=== PATIENT | female | born 1995 ===

== ENCOUNTER 2019-06-07 14:59 | Inpatient (IN) | payer BC ==
[2019-06-07] MEDS ORDERED: Sodium Chloride 0.9% 2.5 ML Syringe FLUSH PRN (15:19)
[2019-06-07] MEDS ORDERED: Misoprostol 200 MCG Tab PO PRN (15:19)
[2019-06-07] MEDS ORDERED: Methylergonovine 0.2 MG/1 ML Amp IM PRN (15:19)
[2019-06-07] MEDS ORDERED: Butorphanol 1 MG/ML SDV IVPUSH PRN (15:19)
[2019-06-07] MEDS ORDERED: Tranexamic Acid 1,000 MG in Sodium Chloride 0.9% 100 ML IV PRN (15:19)
[2019-06-07] MEDS ORDERED: Carboprost Tromethamine 250 MCG/1 ML Amp IM PRN (15:19)
[2019-06-07] MEDS ORDERED: Nalbuphine 10 MG/1 ML Vial IVPUSH PRN (15:19)
[2019-06-07] MEDS ORDERED: Sodium Chloride 0.9% 10 ML Syringe FLUSH PRN (15:19)
[2019-06-07] MEDS ORDERED: Water For Irrigation,Sterile 1,000 ML Container IRR PRN (15:19)
[2019-06-07] MEDS ORDERED: Sodium Chloride 0.9% 10 ML SDV IV PRN (15:19)
[2019-06-07] MEDS ORDERED: Lidocaine 1% 50 ML MDV INJECT PRN (15:19)
[2019-06-07] MEDS ORDERED: Oxytocin/0.9 % Sodium Chloride 30 UNIT/500 ML BAG IV SCH (15:30)
[2019-06-07] MEDS ORDERED: Lactated Ringers 1,000 ML IV SCH (15:30)
[2019-06-07] MEDS ORDERED: Ampicillin 2 GM in Sodium Chloride 0.9% 100 ML IV ONE (15:41)
[2019-06-07] MEDS ORDERED: Oxytocin/0.9 % Sodium Chloride 30 UNIT/500 ML BAG ONE (16:20)
[2019-06-07] MEDS ORDERED: Lidocaine 1% 50 ML MDV ONE (16:44)
--- NOTE | 2019-06-07 17:06 | PCM.LDHP ---
L&D History of Present Illness - General Date of Service: 06/07/19 Admit Problem/Dx: Patient Status Order with Admit Dx/Problem 06/07/19 15:22 Patient Status [ADT] Routine Admission Diagnosis/Problem Admission Diagnosis/Problem 06/07/19 17:01 24yo EDC 06/14/2019 O neg, RI, GBS pos. Comes in active labor and delivered an hour later healthy baby girl. Source of Information: Patient History Limitations: Reports: No Limitations - History of Present Illness Improves with: Reports: None Worsens with: Reports: None Associated Symptoms: Reports: N - Related Data Allergies/Adverse Reactions: Allergies Allergy/AdvReac Type Severity Reaction Status Date / Time No Known Allergies Allergy Verified 06/07/19 15:17 Home Medications: Home Meds Famotidine [Pepcid] 10 mg PO BID PRN 06/06/19 [History] Vits #93/Iron Fum/FA [ Formula Tablet] 1 each PO DAILY [History] H&P Review of Systems - Review of Systems: Review Of Systems: See Below General: Reports: No Symptoms HEENT: Reports: No Symptoms Pulmonary: Reports: No Symptoms Cardiovascular: Reports: No Symptoms Gastrointestinal: Reports: No Symptoms Genitourinary: Reports: No Symptoms Musculoskeletal: Reports: No Symptoms Skin: Reports: No Symptoms Psychiatric: Reports: No Symptoms Neurological: Reports: No Symptoms Hematologic/Lymphatic: Reports: No Symptoms Immunologic: Reports: No Symptoms L&D Exam - Exam Exam: See Below - OB Specific Contraction Intensity: Strong Movement: Active Heart Tones: Present Heart Rate (FHR) Variability: Moderate (6-25 bmp) Presentation: Vertex - Contreras Score Contreras Score Cervix Position: Anterior Contreras Score Effacement: >80% Contreras Score Dilation: > 5 cm Contreras Score Infant's Station: +1, +2 - Exam General: Alert, Oriented, Cooperative Lungs: Normal Respiratory Effort Rectal Exam: Deferred Genitourinary: Normal external exam, Normal bimanual exam, Cervical dilitation Back Exam: Full Range of Motion Extremities: Normal Range of Motion, Non-Tender, No Pedal Edema Skin: Warm, Dry, Intact Neurological: Cranial Nerves Intact, Strength Equal Bilateral, Normal Speech, Normal Tone, Sensation Intact Psychiatric: Alert, Normal Affect, Normal Mood - Patient Data Lab Results Last 24 hrs: Laboratory Results - last 24 hr 06/07/19 06/07/19 Range/Units 15:40 16:20 WBC 9.02 (4.0-11.0) K/uL RBC 4.01 L (4.30-5.90) M/uL Hgb 12.1 (12.0-16.0) g/dL Hct 35.3 L (36.0-46.0) % MCV 88.0 (80.0-98.0) fL MCH 30.2 (27.0-32.0) pg MCHC 34.3 (31.0-37.0) g/dL RDW Std Deviation 42.8 (28.0-62.0) fl RDW Coeff of Margarita 13 (11.0-15.0) % Plt Count 202 (150-400) K/uL MPV 11.00 (7.40-12.00) fL Nucleated RBC % 0.0 /100WBC Nucleated RBCs # 0 K/uL Membrane Rupture POSITIVE Result Diagrams: 06/07/19 16:20 - Problem List (1) Supervision of normal IUP (intrauterine ) in multigravida SNOMED Code(s): 851000941, 132495385, 050111670 ICD Code: Z34.80 - ENCOUNTER FOR SUPRVSN OF NORMAL , UNSP TRIMESTER Status: Acute Priority: High Current Visit: Yes Qualifiers: Trimester: third trimester Qualified Code(s): Z34.83 - Encounter for supervision of other normal , third trimester (2) (normal spontaneous vaginal delivery) SNOMED Code(s): 55022314, 854101504 ICD Code: O80 - ENCOUNTER FOR FULL-TERM UNCOMPLICATED DELIVERY Status: Acute Priority: High Current Visit: Yes Problem List Initiated/Reviewed/Updated: Yes Orders Last 24hrs: Active Orders 24 hr Category Date Time Status Patient Status [ADT] Routine ADT 06/07/19 15:22 Active Heart Tones [RC] CONTINUOUS Care 06/07/19 15:22 Active Non Stress Test [RC] PER UNIT ROUTINE Care 06/07/19 15:22 Active May Shower [RC] ASDIRECTED Care 06/07/19 15:22 Active Notify Provider [RC] PRN Care 06/07/19 15:22 Active Up ad Tanja [RC] ASDIRECTED Care 06/07/19 15:22 Active Vaginal Exam [RC] PRN Care 06/07/19 15:22 Active Vital Signs [RC] PER UNIT ROUTINE Care 06/07/19 15:22 Active RPR (SYPHILIS SERO) W/ RFLX [REF] Routine Lab 06/07/19 16:20 Received TYPE AND SCREEN [BBK] Routine Lab 06/07/19 Ordered Ampicillin 1 gm Med 06/07/19 20:00 Active Sodium Chloride 0.9% [Normal Saline] 50 ml IV Q4H Butorphanol [Stadol] Med 06/07/19 15:19 Active 1 mg IVPUSH Q1H PRN Carboprost Tromethamine [Hemabate DS] Med 06/07/19 15:19 Active 250 mcg IM ASDIRECTED PRN Lactated Ringers [Ringers, Lactated] 1,000 ml Med 06/07/19 15:30 Active IV ASDIRECTED Lidocaine 1% [Xylocaine 1%] Med 06/07/19 15:19 Active 50 ml INJECT ONETIME PRN Methylergonovine [Methergine] Med 06/07/19 15:19 Active 0.2 mg IM ASDIRECTED PRN Nalbuphine [Nubain] Med 06/07/19 15:19 Active 10 mg IVPUSH Q1H PRN Oxytocin/0.9 % Sodium Chloride [Oxytocin 30 Unit/500 ML Med 06/07/19 15:30 Active -NS] 30 unit in 500 ml IV TITRATE Sodium Chloride 0.9% [Normal Saline] Med 06/07/19 15:19 Active 10 ml IV ASDIRECTED PRN Sodium Chloride 0.9% [Saline Flush] Med 06/07/19 15:19 Active 10 ml FLUSH ASDIRECTED PRN Sodium Chloride 0.9% [Saline Flush] Med 06/07/19 15:19 Active 2.5 ml FLUSH ASDIRECTED PRN Tranexamic Acid [Cyklokapron] 1,000 mg Med 06/07/19 15:19 Active Sodium Chloride 0.9% [Normal Saline] 100 ml IV ONETIME Water For Irrigation,Sterile [Sterile Water for Med 06/07/19 15:19 Active Irrigation] 1,000 ml IRR ASDIRECTED PRN miSOPROStoL [Cytotec] Med 06/07/19 15:19 Active 200 mcg PO ONETIME PRN Scalp Electrode [WOMSER] Per Unit Routine Oth 06/07/19 15:22 Ordered Peripheral IV Insertion Adult [OM.PC] Routine Oth 06/07/19 15:22 Ordered Resuscitation Status Routine Resus Stat 06/07/19 15:19 Ordered Medication Orders Butorphanol Tartrate (Stadol) 1 mg IVPUSH Q1H PRN PRN Reason: Pain Carboprost Tromethamine (Hemabate Ds) 250 mcg IM ASDIRECTED PRN PRN Reason: Post Hemorrhage Lactated Ringer's (Ringers, Lactated) 1,000 mls @ 150 mls/hr IV ASDIRECTED [facility] Last Admin: 06/07/19 15:43 Dose: 150 mls/hr Oxytocin/Sodium Chloride (Oxytocin 30 Unit/500 Ml-Ns) 30 unit in 500 mls @ 500 mls/hr IV TITRATE [facility] Last Admin: 06/07/19 16:26 Dose: 500 mls/hr Tranexamic Acid 1,000 mg/ (Sodium Chloride) 110 mls @ 660 mls/hr IV ONETIME PRN PRN Reason: Bleeding Ampicillin Sodium 1 gm/ Sodium (Chloride) 50 mls @ 100 mls/hr IV Q4H [facility] Lidocaine HCl (Xylocaine 1%) 50 ml INJECT ONETIME PRN PRN Reason: Laceration repair Methylergonovine Maleate (Methergine) 0.2 mg IM ASDIRECTED PRN PRN Reason: Post Hemorrhage Misoprostol (Cytotec) 200 mcg PO ONETIME PRN PRN Reason: Post Hemorrhage Nalbuphine HCl (Nubain) 10 mg IVPUSH Q1H PRN PRN Reason: Pain (severe 7-10) Sodium Chloride (Saline Flush) 10 ml FLUSH ASDIRECTED PRN PRN Reason: Keep Vein Open Sodium Chloride (Saline Flush) 2.5 ml FLUSH ASDIRECTED PRN PRN Reason: Keep Vein Open Sodium Chloride (Normal Saline) 10 ml IV ASDIRECTED PRN PRN Reason: IV Use Sterile Water (Sterile Water For Irrigation) 1,000 ml IRR ASDIRECTED PRN PRN Reason: delivery Assessment/Plan Comment:: Admit A: 24yo EDC 06/14/2019 O neg, RI, GBS pos. Comes in active labor and delivered an hour later healthy baby girl. P: Admit, Amp 2gm given, amnisure pos. Labs, Pt delivered with nurse assist. Delivery A: of viable female, APGARS 9/9, Wt pending. Intact perineum, EBL 150cc, Stable P: Routine pp plan of care
--- NOTE | 2019-06-07 17:08 | PCM.DEL ---
L & D Note - General Info Date of Service: 06/07/19 Mother's Due Date: 06/14/19 - Delivery Note Labor: Spontaneous Delivery Outcome: Livebirth Infant Delivery Method: Spontaneous Vaginal Delivery-Single Delivery Mode: Spontaneous Presentation: Vertex Nuchal Cord: None Anesthesia Type: None Amniotic Fluid Description: Clear Episiotomy Type: None Laceration: None Placenta: Intact, Spontaneous Cord: 3 Vessels Estimated Blood Loss: 150 Resuscitation Needed: No Score 1 min: 9 Score 5 min: 9 Second Stage Interventions: Reports: Other (see below) (Nurse assisted delivery. Provider called 5 min prior when pt was 8cm.) - General Info Date of Service: 06/07/19 Admission Dx/Problem (Free Text): Patient Status Order with Admit Dx/Problem 06/07/19 15:22 Patient Status [ADT] Routine Admission Diagnosis/Problem Admission Diagnosis/Problem 06/07/19 17:01 24yo EDC 06/14/2019 O neg, RI, GBS pos. Comes in active labor and delivered an hour later healthy baby girl. Functional Status: Reports: Pain Controlled - Review of Systems General: Reports: No Symptoms HEENT: Reports: No Symptoms Pulmonary: Reports: No Symptoms Cardiovascular: Reports: No Symptoms Gastrointestinal: Reports: No Symptoms Genitourinary: Reports: No Symptoms Musculoskeletal: Reports: No Symptoms Skin: Reports: No Symptoms Neurological: Reports: No Symptoms Psychiatric: Reports: No Symptoms - Patient Data Lab Results Last 24 Hours: Laboratory Results - last 24 hr 06/07/19 06/07/19 Range/Units 15:40 16:20 WBC 9.02 (4.0-11.0) K/uL RBC 4.01 L (4.30-5.90) M/uL Hgb 12.1 (12.0-16.0) g/dL Hct 35.3 L (36.0-46.0) % MCV 88.0 (80.0-98.0) fL MCH 30.2 (27.0-32.0) pg MCHC 34.3 (31.0-37.0) g/dL RDW Std Deviation 42.8 (28.0-62.0) fl RDW Coeff of Margarita 13 (11.0-15.0) % Plt Count 202 (150-400) K/uL MPV 11.00 (7.40-12.00) fL Nucleated RBC % 0.0 /100WBC Nucleated RBCs # 0 K/uL Membrane Rupture POSITIVE Med Orders - Current: Current Medications Butorphanol Tartrate (Stadol) 1 mg IVPUSH Q1H PRN PRN Reason: Pain Carboprost Tromethamine (Hemabate Ds) 250 mcg IM ASDIRECTED PRN PRN Reason: Post Hemorrhage Lactated Ringer's (Ringers, Lactated) 1,000 mls @ 150 mls/hr IV ASDIRECTED [facility] Last Admin: 06/07/19 15:43 Dose: 150 mls/hr Oxytocin/Sodium Chloride (Oxytocin 30 Unit/500 Ml-Ns) 30 unit in 500 mls @ 500 mls/hr IV TITRATE [facility] Last Admin: 06/07/19 16:26 Dose: 500 mls/hr Tranexamic Acid 1,000 mg/ (Sodium Chloride) 110 mls @ 660 mls/hr IV ONETIME PRN PRN Reason: Bleeding Ampicillin Sodium 1 gm/ Sodium (Chloride) 50 mls @ 100 mls/hr IV Q4H [facility] Lidocaine HCl (Xylocaine 1%) 50 ml INJECT ONETIME PRN PRN Reason: Laceration repair Methylergonovine Maleate (Methergine) 0.2 mg IM ASDIRECTED PRN PRN Reason: Post Hemorrhage Misoprostol (Cytotec) 200 mcg PO ONETIME PRN PRN Reason: Post Hemorrhage Nalbuphine HCl (Nubain) 10 mg IVPUSH Q1H PRN PRN Reason: Pain (severe 7-10) Sodium Chloride (Saline Flush) 10 ml FLUSH ASDIRECTED PRN PRN Reason: Keep Vein Open Sodium Chloride (Saline Flush) 2.5 ml FLUSH ASDIRECTED PRN PRN Reason: Keep Vein Open Sodium Chloride (Normal Saline) 10 ml IV ASDIRECTED PRN PRN Reason: IV Use Sterile Water (Sterile Water For Irrigation) 1,000 ml IRR ASDIRECTED PRN PRN Reason: delivery Discontinued Medications Ampicillin Sodium 2 gm/ Sodium (Chloride) 100 mls @ 200 mls/hr IV ONETIME ONE Stop: 06/07/19 16:10 Last Admin: 06/07/19 15:56 Dose: 200 mls/hr Oxytocin/Sodium Chloride (Oxytocin 30 Unit/500 Ml-Ns) Confirm Administered Dose 30 unit in 500 mls @ as directed .ROUTE .STK-MED ONE Stop: 06/07/19 16:21 Lidocaine HCl (Xylocaine 1%) Confirm Administered Dose 50 ml .ROUTE .STK-MED ONE Stop: 06/07/19 16:45 - Exam General: Alert, Oriented, Cooperative, No Acute Distress Lungs: Normal Respiratory Effort GI/Abdominal Exam: Soft, Non-Tender (Female) Exam: Deferred, Vaginal Bleeding. No: Vaginal Lesions, Vaginal Tears Back Exam: Full Range of Motion Extremities: Normal Range of Motion, Non-Tender, No Pedal Edema Skin: Warm, Dry, Intact Neurological: No New Focal Deficit, Normal Speech, Normal Tone, Strength Equal Bilateral, Sensation Intact Psy/Mental Status: Alert, Normal Affect, Normal Mood - Problem List & Annotations (1) Supervision of normal IUP (intrauterine ) in multigravida SNOMED Code(s): 385514619, 494368518, 263720557 Code(s): Z34.80 - ENCOUNTER FOR SUPRVSN OF NORMAL , UNSP TRIMESTER Status: Acute Priority: High Current Visit: Yes Qualifiers: Trimester: third trimester Qualified Code(s): Z34.83 - Encounter for supervision of other normal , third trimester (2) (normal spontaneous vaginal delivery) SNOMED Code(s): 50861395, 329277355 Code(s): O80 - ENCOUNTER FOR FULL-TERM UNCOMPLICATED DELIVERY Status: Acute Priority: High Current Visit: Yes - Problem List Review Problem List Initiated/Reviewed/Updated: Yes - My Orders Last 24 Hours: My Active Orders 06/07/19 TYPE AND SCREEN [BBK] Routine 06/07/19 15:19 Butorphanol [Stadol] 1 mg IVPUSH Q1H PRN Carboprost Tromethamine [Hemabate DS] 250 mcg IM ASDIRECTED PRN Lidocaine 1% [Xylocaine 1%] 50 ml INJECT ONETIME PRN Methylergonovine [Methergine] 0.2 mg IM ASDIRECTED PRN Nalbuphine [Nubain] 10 mg IVPUSH Q1H PRN Sodium Chloride 0.9% [Normal Saline] 10 ml IV ASDIRECTED PRN Sodium Chloride 0.9% [Saline Flush] 10 ml FLUSH ASDIRECTED PRN Sodium Chloride 0.9% [Saline Flush] 2.5 ml FLUSH ASDIRECTED PRN Tranexamic Acid [Cyklokapron] 1,000 mg Sodium Chloride 0.9% [Normal Saline] 100 ml IV ONETIME Water For Irrigation,Sterile [Sterile Water for Irrigation] 1,000 ml IRR ASDIRECTED PRN miSOPROStoL [Cytotec] 200 mcg PO ONETIME PRN Resuscitation Status Routine 06/07/19 15:22 Patient Status [ADT] Routine Heart Tones [RC] CONTINUOUS Non Stress Test [RC] PER UNIT ROUTINE May Shower [RC] ASDIRECTED Notify Provider [RC] PRN Up ad Tanja [RC] ASDIRECTED Vaginal Exam [RC] PRN Vital Signs [RC] PER UNIT ROUTINE Scalp Electrode [WOMSER] Per Unit Routine Peripheral IV Insertion Adult [OM.PC] Routine 06/07/19 15:30 Lactated Ringers [Ringers, Lactated] 1,000 ml IV ASDIRECTED Oxytocin/0.9 % Sodium Chloride [Oxytocin 30 Unit/500 ML-NS] 30 unit in 500 ml IV TITRATE 06/07/19 16:20 RPR (SYPHILIS SERO) W/ RFLX [REF] Routine 06/07/19 20:00 Ampicillin 1 gm Sodium Chloride 0.9% [Normal Saline] 50 ml IV Q4H - Plan Plan:: Admit A: 24yo EDC 06/14/2019 O neg, RI, GBS pos. Comes in active labor and delivered an hour later healthy baby girl. P: Admit, Amp 2gm given, amnisure pos. Labs, Pt delivered with nurse assist. Delivery A: of viable female, APGARS 9/9, Wt pending. Intact perineum, EBL 150cc, Stable P: Routine pp plan of care
[2019-06-07] MEDS ORDERED: Benzocaine/Menthol 20%-0.5% Spray 78 GM Cannister TOP PRN (17:09)
[2019-06-07] MEDS ORDERED: Bisacodyl 10 MG Supp RECTAL PRN (17:09)
[2019-06-07] MEDS ORDERED: Docusate Sodium 100 MG Cap PO PRN (17:09)
[2019-06-07] MEDS ORDERED: Ibuprofen 800 MG Tab PO PRN (17:09)
[2019-06-07] MEDS ORDERED: oxyCODONE 5 MG Tab PO PRN (17:09)
[2019-06-07] MEDS ORDERED: Witch Hazel Medicated Pads 40/Jar TOP PRN (17:09)
[2019-06-07] MEDS ORDERED: Ibuprofen 400 MG Tab PO PRN (17:09)
[2019-06-07] MEDS ORDERED: Acetaminophen 500 MG Tab PO PRN ×2 (17:09)
[2019-06-07] MEDS ORDERED: Lanolin 100% Cream 7 GM Tube TOP PRN (17:09)
[2019-06-07] MEDS ORDERED: Ampicillin 1 GM in Sodium Chloride 0.9% 50 ML IV SCH (20:00)
--- NOTE | 2019-06-08 08:25 | PCM.DCSUM1 ---
Discharge Summary - Hospital Course Free Text/Narrative:: Discharge home with infant. Follow up 6 weeks for . Diagnosis: Stroke: No - Discharge Data Discharge Date: 06/08/19 Discharge Disposition: Home, Self-Care 01 Condition: Good - Referral to Home Health Primary Care Physician: Cindy Hernandez CNM - Discharge Diagnosis/Problem(s) (1) Supervision of normal IUP (intrauterine ) in multigravida SNOMED Code(s): 373190164, 020261999, 810088559 ICD Code: Z34.80 - ENCOUNTER FOR SUPRVSN OF NORMAL , UNSP TRIMESTER Status: Acute Priority: High Current Visit: Yes Qualifiers: Trimester: third trimester Qualified Code(s): Z34.83 - Encounter for supervision of other normal , third trimester (2) (normal spontaneous vaginal delivery) SNOMED Code(s): 22207192, 703091319 ICD Code: O80 - ENCOUNTER FOR FULL-TERM UNCOMPLICATED DELIVERY Status: Acute Priority: High Current Visit: Yes - Patient Instructions Diet: Usual Diet as Tolerated Activity: As Tolerated, No Strenuous Activities, Rest and Relax Today Driving: May Drive Today Showering/Bathing: May Shower Notify Provider of: Fever, Increased Pain, Swelling and Redness, Nausea and/or Vomiting Other/Special Instructions: Discharge home with . Follow up 6 weeks for . - Discharge Plan *PRESCRIPTION DRUG MONITORING PROGRAM REVIEWED*: Not Applicable *COPY OF PRESCRIPTION DRUG MONITORING REPORT IN PATIENT MAHSA: Not Applicable Home Medications: Home Meds Famotidine [Pepcid] 10 mg PO BID PRN 06/06/19 [History] Vits #93/Iron Fum/FA [ Formula Tablet] 1 each PO DAILY [History] Oxygen Therapy Mode: Room Air Referrals: [facility] [Outside] Deborah Dacosta CNM, PRODUCTION TEAM MANAGER [Mid-] - 07/19/19 3:00 pm - Discharge Summary/Plan Comment DC Time >30 min.: Yes - General Info Date of Service: 06/08/19 Admission Dx/Problem (Free Text: Patient Status Order with Admit Dx/Problem 06/07/19 15:22 Patient Status [ADT] Routine Admission Diagnosis/Problem Admission Diagnosis/Problem 06/07/19 17:01 24yo EDC 06/14/2019 O neg, RI, GBS pos. Comes in active labor and delivered an hour later healthy baby girl. Functional Status: Reports: Pain Controlled, Tolerating Diet, Ambulating, Urinating - Review of Systems General: Reports: No Symptoms HEENT: Reports: No Symptoms Pulmonary: Reports: No Symptoms Cardiovascular: Reports: No Symptoms Gastrointestinal: Reports: No Symptoms Genitourinary: Reports: No Symptoms Musculoskeletal: Reports: No Symptoms Skin: Reports: No Symptoms Neurological: Reports: No Symptoms Psychiatric: Reports: No Symptoms - Patient Data Vitals - Most Recent: Last Vital Signs Temp 36.7 C 06/08/19 03:58 Pulse 60 06/08/19 03:58 Resp 16 06/08/19 03:58 BP 122/65 06/08/19 03:58 Pulse Ox 98 06/08/19 03:58 Weight - Most Recent: 75.75 kg Lab Results - Last 24 hrs: Laboratory Results - last 24 hr 06/07/19 06/07/19 06/07/19 Range/Units 15:40 16:20 17:48 WBC 9.02 (4.0-11.0) K/uL RBC 4.01 L (4.30-5.90) M/uL Hgb 12.1 (12.0-16.0) g/dL Hct 35.3 L (36.0-46.0) % MCV 88.0 (80.0-98.0) fL MCH 30.2 (27.0-32.0) pg MCHC 34.3 (31.0-37.0) g/dL RDW Std Deviation 42.8 (28.0-62.0) fl RDW Coeff of Margarita 13 (11.0-15.0) % Plt Count 202 (150-400) K/uL MPV 11.00 (7.40-12.00) fL Nucleated RBC % 0.0 /100WBC Nucleated RBCs # 0 K/uL Membrane Rupture POSITIVE Blood Type O NEGATIVE Antibody Screen NEGATIVE Screen NEGATIVE (NEGATIVE) RhIG Candidate? YES Rhogam Indicated YES, BABY RH POS H Med Orders - Current: Current Medications Acetaminophen (Tylenol Extra Strength) 500 mg PO Q4H PRN PRN Reason: Pain Acetaminophen (Tylenol Extra Strength) 1,000 mg PO Q4H PRN PRN Reason: Pain Benzocaine/Menthol (Dermoplast Pain Relief 20%-0.5% [place]) 78 gm TOP ASDIRECTED PRN PRN Reason: Perineal Comfort Measure Bisacodyl (Dulcolax) 10 mg RECTAL ONETIME PRN PRN Reason: Constipation Docusate Sodium (Colace) 100 mg PO BID PRN PRN Reason: Constipation Emollient Ointment (Lansinoh Hpa) 0 gm TOP ASDIRECTED PRN PRN Reason: Sore Nipples Ibuprofen (Motrin) 400 mg PO Q4H PRN PRN Reason: Pain Ibuprofen (Motrin) 800 mg PO Q6H PRN PRN Reason: Pain Last Admin: 06/08/19 00:12 Dose: 800 mg Oxycodone HCl (Oxycodone) 5 mg PO Q2H PRN PRN Reason: Pain Witch Liz (Tucks) 1 pad TOP ASDIRECTED PRN PRN Reason: comfort care Discontinued Medications Butorphanol Tartrate (Stadol) 1 mg IVPUSH Q1H PRN PRN Reason: Pain Carboprost Tromethamine (Hemabate Ds) 250 mcg IM ASDIRECTED PRN PRN Reason: Post Hemorrhage Lactated Ringer's (Ringers, Lactated) 1,000 mls @ 150 mls/hr IV ASDIRECTED [facility] Last Admin: 06/07/19 15:43 Dose: 150 mls/hr Oxytocin/Sodium Chloride (Oxytocin 30 Unit/500 Ml-Ns) 30 unit in 500 mls @ 500 mls/hr IV TITRATE [facility] Last Admin: 06/07/19 16:26 Dose: 500 mls/hr Tranexamic Acid 1,000 mg/ (Sodium Chloride) 110 mls @ 660 mls/hr IV ONETIME PRN PRN Reason: Bleeding Ampicillin Sodium 1 gm/ Sodium (Chloride) 50 mls @ 100 mls/hr IV Q4H [facility] Ampicillin Sodium 2 gm/ Sodium (Chloride) 100 mls @ 200 mls/hr IV ONETIME ONE Stop: 06/07/19 16:10 Last Admin: 06/07/19 15:56 Dose: 200 mls/hr Oxytocin/Sodium Chloride (Oxytocin 30 Unit/500 Ml-Ns) Confirm Administered Dose 30 unit in 500 mls @ as directed .ROUTE .STK-MED ONE Stop: 06/07/19 16:21 Lidocaine HCl (Xylocaine 1%) 50 ml INJECT ONETIME PRN PRN Reason: Laceration repair Lidocaine HCl (Xylocaine 1%) Confirm Administered Dose 50 ml .ROUTE .[employer]Proginet ONE Stop: 06/07/19 16:45 Methylergonovine Maleate (Methergine) 0.2 mg IM ASDIRECTED PRN PRN Reason: Post Hemorrhage Misoprostol (Cytotec) 200 mcg PO ONETIME PRN PRN Reason: Post Hemorrhage Nalbuphine HCl (Nubain) 10 mg IVPUSH Q1H PRN PRN Reason: Pain (severe 7-10) Sodium Chloride (Saline Flush) 10 ml FLUSH ASDIRECTED PRN PRN Reason: Keep Vein Open Sodium Chloride (Saline Flush) 2.5 ml FLUSH ASDIRECTED PRN PRN Reason: Keep Vein Open Sodium Chloride (Normal Saline) 10 ml IV ASDIRECTED PRN PRN Reason: IV Use Sterile Water (Sterile Water For Irrigation) 1,000 ml IRR ASDIRECTED PRN PRN Reason: delivery - Exam General: Reports: Alert, Oriented, Cooperative, No Acute Distress Lungs: Reports: Normal Respiratory Effort GI/Abdominal Exam: Soft, Non-Tender (Female) Exam: Deferred, Vaginal Bleeding Rectal (Female) Exam: Deferred Back Exam: Reports: Full Range of Motion Extremities: Normal Range of Motion, No Pedal Edema Skin: Reports: Warm, Dry, Intact Neurological: Reports: No New Focal Deficit, Normal Speech, Normal Tone, Sensation Intact Psy/Mental Status: Reports: Alert, Normal Affect, Normal Mood
== END 2019-06-08 18:44 | disposition home or self-care (01) | DRG 560 ==
LOC: MW.OBCHECK 14:59 → MW.OB 15:00 → OBSVTOIN 16:25 → MW.OBCHECK 16:27 → MW.OB 19:09
PROVIDERS: ADMIT Obstetrics & Gynecology; ATTEND Obstetrics & Gynecology
PROC: 10E0XZZ Delivery of Products of Conception, External Approach (ICD-10-PCS; principal; 2019-06-07)
PROC: 3E0234Z Introduction of Serum, Toxoid and Vaccine into Muscle, Percutaneous Approach (ICD-10-PCS; 2019-06-07)
DX: O99.824 Streptococcus B carrier state complicating childbirth (principal); Z37.0 Single live birth; Z3A.39 39 weeks gestation of pregnancy
CPT/HCPCS: 36415; 59025; 59409; 84112; 85027; 85460; 86592; 86850; 86900; 86901; A9270-GY; J0290; J2001; J2590; J2792; J7050; J7120